=== PATIENT | female | born 1995 | race Caucasian/White ===

== ENCOUNTER 2021-06-26 19:57 | Inpatient (IN) | payer MEDICAID ==
[~2021-06-26] VITALS: Ht 172 cm; Wt 96.0 kg
[2021-06-26 20:15] VITALS: BP 125/83
[2021-06-26 20:20] VITALS: BP 125/83
[2021-06-26] MEDS ORDERED: MINERAL OIL 30 ML OIL TOP PRN (22:15)
[2021-06-26 22:35] LABS: BASOPHILS % (AUTO) 0 % (0-10); EOSINOPHILS % (AUTO) 0 % (0-10); HEMATOCRIT 37 % (35-52); HEMOGLOBIN 12.1 g/dL (11.5-16.0); LYMPHOCYTES # (AUTO) 1.8 10^3/uL (1.0-4.0); LYMPHOCYTES % (AUTO) 15 % (12-44); MEAN CORPUSCULAR HEMOGLOBIN 28 pg (25-34); MEAN CORPUSCULAR HGB CONC 33 g/dL (32-36); MEAN CORPUSCULAR VOLUME 83 fL (80-99); MEAN PLATELET VOLUME 11.3 fL (9.0-12.2); MONOCYTES % (AUTO) 8 % (0-12); NEUTROPHILS # (AUTO) 9.4 10^3/uL (1.8-7.8); NEUTROPHILS % (AUTO) 76 % (42-75); PLATELET COUNT 275 10^3/uL (130-400); WHITE BLOOD COUNT 12.3 10^3/uL (4.3-11.0)
[2021-06-26] MEDS: D5 LR IV SOLUTION 1,000 ML IV SCH (23:12)
[2021-06-27] VITALS (47 sets, daily range): BP systolic 103–148; BP diastolic 55–93
[2021-06-27 01:01] LABS: BILIRUBIN,URINE NEGATIVE (NEGATIVE); CLARITY,URINE SL CLOUDY; COLOR,URINE YELLOW; GLUCOSE, URINE (UA) NEGATIVE (NEGATIVE); KETONES,URINE NEGATIVE (NEGATIVE); LEUKOCYTE ESTERASE ,URINE TRACE (NEGATIVE); NITRITE,URINE NEGATIVE (NEGATIVE); PROTEIN,URINE NEGATIVE (NEGATIVE)
[2021-06-27 01:12] LABS: BACTERIA,URINE TRACE /HPF; WBC,URINE 0-2 /HPF
[2021-06-27] MEDS ORDERED: BUTORPHANOL INJ 2 MG/ML (STADOL) VIAL ONE ×2 (01:15→03:45)
[2021-06-27] MEDS ORDERED: BUTORPHANOL INJ 2 MG/ML (STADOL) VIAL IV ONE ×2 (01:15→03:45)
[2021-06-27] MEDS ORDERED: fentaNYL 2 mcg/ml BUPIVA 0.125 100 ML ONE (05:10)
[2021-06-27] MEDS ORDERED: LACTATED RINGERS 1,000 ML IV ONE (05:15)
[2021-06-27] MEDS ORDERED: CATHETER FLUSH 10 ML SYR IV SCH ×2 (06:00→14:00)
[2021-06-27] MEDS ORDERED: BUPIVACAINE 0.25% 30 ML (SENSORCAINE) VIAL ONE (06:02)
[2021-06-27] MEDS ORDERED: fentaNYL INJ 100 MCG/2 ML AMP ONE (06:02)
[2021-06-27] MEDS: D5 LR IV SOLUTION 1,000 ML IV SCH (06:29)
[2021-06-27] MEDS ORDERED: diphenhydrAMINE 50 MG/ML INJ (BENADRYL) IV PRN (06:45)
[2021-06-27] MEDS ORDERED: METOCLOPRAMIDE INJ 10 MG/2 ML (REGLAN) IV PRN (06:45)
[2021-06-27] MEDS ORDERED: ONDANSETRON 4 MG/2 ML (SDV) Z0FRAN IV PRN (06:45)
[2021-06-27] MEDS ORDERED: NALOXONE 0.4 MG/ML 1 ML (NARCAN) VIAL IV PRN ×2 (06:45)
[2021-06-27] MEDS ORDERED: LACTATED RINGERS 1,000 ML IV SCH (06:45)
[2021-06-27] MEDS ORDERED: EPIDURAL (fentaNYL 2 MCG/ML BUPIVA 0.125%)100 ML BAG EPI PRN (06:45)
[2021-06-27] MEDS ORDERED: FLU QUADRIvalent (3YOA+) 60 mcg/0.5 ml 2021-22(AFLURIA) IM ONE (07:15)
--- NOTE | 2021-06-27 08:46 | History & Physical-OB ---
OB - Chief Complaint & HPI Date/Time Date of Admission: Date of Admission: Jun 26, 2021 at 21:48 Date seen by a Provider: Jun 27, 2021 Time Seen by a Provider: 08:45 Chief Complaint/History OB-Reason for Admission/Chief: Onset of Labor Hx : 3 Hx Para: 0 Expected Date of Delivery: Jun 27, 2021 Gestational Age in Weeks: 39 Gestational Age in Days: 6 Other reason for admission: Contractions that started getting worse around 5 PM last night. They did not improve so they came to be evaluated. Denies any LOF or vaginal bleeding History of Labs O+, Ab neg Rub NON Immune HIV/RPR/HepB/C NR Normal 1 hr GTT GBS neg Allergies and Home Medications Allergies Coded Allergies: No Known Drug Allergies (Unverified , 06/26/21) Patient Home Medication List Home Medication List Reviewed: Yes OB - History Hx of Present Care: Yes Ultrasounds: Normal mid trimester US Obstetrical Complications: None Medical Complications: None Obstetrical History Hx : 3 Hx Para: 0 Number of Living Children: 0 Patient Past Medical History None Social History/Family History Alcohol Use: Denies Use Smoking Cessation: Never smoker Immunizations Influenza Vaccine Up-to-Date: No; Not Current Tetanus Booster (TDap): Less than 5yrs (04/17/21) Rubella: not immune RPR/VDRL: Negative GBS Status: Negative HBsAG: Negative OB - Admission Exam Physical Exam Vitals: Vital Signs 06/27/21 06/27/21 04:30 07:15 Temp 36.6 Pulse 109 Resp 16 B/P (MAP) 108/71 (83) Pulse Ox 98 O2 Delivery Room Air HEENT: NCAT Heart: Rhythm Normal Lungs: Clear Abdomen: Gravid Cervical Dilatation: 8cm Effacement: 100% Station: 0 Membranes: Intact Heart Rate: 140's Accelerations: Accelerations Present Decelerations: No Decelerations Short Term Variability: Present Correction Variability: Average (6-25) Contractions on Admission: < 5 Minutes Apart Intensity: Moderate Labs Laboratory Tests Test 06/26/21 20:10 06/26/21 22:25 Range/Units Urine Color YELLOW Urine Clarity SL CLOUDY Urine pH 7.0 5-9 Urine Specific [place] 1.020 1.016-1.022 Urine Protein NEGATIVE NEGATIVE Urine Glucose (UA) NEGATIVE NEGATIVE Urine Ketones NEGATIVE NEGATIVE Urine Nitrite NEGATIVE NEGATIVE Urine Bilirubin NEGATIVE NEGATIVE Urine Urobilinogen 0.2 < = 1.0 MG/DL Urine Leukocyte Esterase TRACE H NEGATIVE Urine RBC (Auto) TRACE-I H NEGATIVE Urine RBC 2-5 H /HPF Urine WBC 0-2 /HPF Urine Squamous Epithelial Cells 2-5 /HPF Urine Crystals NONE /LPF Urine Bacteria TRACE /HPF Urine Casts NONE /LPF Urine Mucus SMALL H /LPF Urine Culture Indicated NO White Blood Count 12.3 H 4.3-11.0 10^3/uL Red Blood Count 4.38 3.80-5.11 10^6/uL Hemoglobin 12.1 11.5-16.0 g/dL Hematocrit 37 35-52 % Mean Corpuscular Volume 83 80-99 fL Mean Corpuscular Hemoglobin 28 25-34 pg Mean Corpuscular Hemoglobin Concent 33 32-36 g/dL Red Cell Distribution Width 13.4 10.0-14.5 % Platelet Count 275 130-400 10^3/uL Mean Platelet Volume 11.3 9.0-12.2 fL Immature Granulocyte % (Auto) 1 % Neutrophils (%) (Auto) 76 H 42-75 % Lymphocytes (%) (Auto) 15 12-44 % Monocytes (%) (Auto) 8 0-12 % Eosinophils (%) (Auto) 0 0-10 % Basophils (%) (Auto) 0 0-10 % Neutrophils # (Auto) 9.4 H 1.8-7.8 10^3/uL Lymphocytes # (Auto) 1.8 1.0-4.0 10^3/uL Monocytes # (Auto) 1.0 0.0-1.0 10^3/uL Eosinophils # (Auto) 0.0 0.0-0.3 10^3/uL Basophils # (Auto) 0.0 0.0-0.1 10^3/uL Immature Granulocyte # (Auto) 0.1 0.0-0.1 10^3/uL OB - Assessment/Plan/Diagnosis Assessment Assessment: active labor Admission Dx Third Trimester 39 week gestation Admission Status: Inpatient Order (span 2 midnights) Reason for Inpatient Admission: Labor Plan Other Plan 26 yo @ 39.6 wga here in active labor Plan - GBS neg - AROM clear 0845 - epidural in place - CEFM - May augment with pitocin BAKARI ALONSO MD Jun 27, 2021 08:46
[2021-06-27] MEDS ORDERED: OXYTOCIN PRE-MIX DRIP 500 ML IV SCH ×2 (10:00→12:15)
[2021-06-27] MEDS ORDERED: OXYTOCIN PRE-MIX DRIP 500 ML IV ONE (10:04)
[2021-06-27] MEDS ORDERED: LIDOCAINE/EPI 2% 1:200,00 (XYLOCAINE) 10 ML VIAL ONE (10:05)
--- NOTE | 2021-06-27 12:00 | OB Labor & Delivery Record ---
Vag Delivery Note Vag Delivery Note Date of Delivery: 06/27/21 Preoperative Diagnosis: Sylwia Polanco is a (26 /Para 3 / 0,Gestational Age (wks)39.6 wga here in active labor Postoperative Diagnosis: Same Surgeon: BAKARI ALONSO MD Nurse Licensed Practical: Estiven Gomes MS4 Anesthesia: Epidural Delivery Type: @ 1111 Findings: Viable female , apgars 8/9, weight 7#12, 3515 grams Lacerations: 3rd degree with bilateral vaginal extension Intact placenta with 3 vessel cord. No nuchal cord, body cord or shoulder dystocia Estimated Blood Loss: 200 ml Complications: None Condition: Stable Description of Procedure: The patient is a 26 year old female who presented in active labor. She was admitted and informed consent was obtained. Her labor course was unremarkable. She progressed to complete dilatation and began to push. She was then set up for delivery. The infant's head was delivered atraumatically in the FLORA position. The shoulders and remainder of the infant's body were then delivered without difficulty. Upon delivery, the head was held below the level of the perineum and the mouth and nares were bulb suctioned. The cord was doubly clamped and cut by FOB after 2 min delay and the was placed on maternal abdomen and attended to by the pediatric staff. An intact placenta with 3-vessel cord delivered via [place] and there was found to be minimal bleeding.~ Vigorous fundal massage was performed and the fundus was found to be firm. IV oxytocin was given. Examination of the vagina and perineum revealed a 3rd degree perineal laceration with bilateral vaginal extension repaired in the usual fashion with 3-0 vicryl suture. Following the repair, sponge, instrument and needle counts were correct. Mom and baby were both in stable condition in the labor suite. Vitals - Labs Vital Signs - I&O Vital Signs Date Time Temp Pulse Resp B/P (MAP) Pulse Ox O2 Delivery O2 Flow Rate FiO2 06/27/21 10:30 86 18 125/79 (94) 99 06/27/21 10:15 86 15 120/80 (93) 97 06/27/21 10:00 104 16 115/77 (90) 97 06/27/21 09:45 105 18 116/76 (89) 96 06/27/21 09:30 103 15 118/69 (85) 97 06/27/21 09:15 109 16 123/70 (87) 98 06/27/21 09:00 110 16 132/77 (95) 98 06/27/21 08:45 102 14 116/74 (88) 93 Room Air 06/27/21 08:30 126 15 116/75 (89) 100 Room Air 06/27/21 08:15 116 18 120/81 (94) 99 Room Air 06/27/21 08:00 88 18 117/81 (93) 99 Room Air 06/27/21 07:45 85 18 125/75 (92) 97 06/27/21 07:30 100 15 111/57 (75) 98 Room Air 06/27/21 07:15 109 16 108/71 (83) 98 Room Air 06/27/21 07:00 109 18 117/75 (89) 06/27/21 06:45 107 18 122/82 (95) 98 06/27/21 06:37 107 18 122/82 (95) 96 Room Air 06/27/21 06:32 116 18 116/77 (90) 96 Room Air 06/27/21 06:28 91 18 119/80 (93) 98 Room Air 06/27/21 06:25 100 18 126/79 (95) 98 Room Air 06/27/21 06:22 107 18 119/80 (93) 98 Room Air 06/27/21 06:17 91 18 127/86 (100) 98 Room Air 06/27/21 06:12 112 18 131/93 (106) 98 Room Air 06/27/21 06:07 113 18 135/82 (99) 98 Room Air 06/27/21 05:30 115 18 120/83 (95) 96 Room Air 06/27/21 05:00 117 18 111/80 (90) 99 Room Air 06/27/21 04:30 36.6 108 18 111/63 (79) 06/27/21 04:00 101 114/79 (91) 06/27/21 03:30 93 18 148/89 (108) 97 Room Air 06/27/21 03:00 109 18 119/78 (92) 98 Room Air 06/27/21 02:30 88 18 118/77 (91) 96 Room Air 06/27/21 02:00 98 17 120/66 (84) 95 Room Air 06/27/21 01:30 82 18 117/77 (90) 95 Room Air 06/27/21 01:00 93 18 128/75 (92) 06/27/21 00:22 96 18 103/63 (76) 06/26/21 20:20 36.6 108 18 125/83 (97) 98 Room Air 06/26/21 20:15 36.6 108 18 98 Room Air I & O 06/27/21 06:59 Intake Total 2000 ml Balance 2000 ml Labs Laboratory Tests 06/26/21 20:10: Urine Color YELLOW, Urine Clarity SL CLOUDY, Urine pH 7.0, Urine Specific [place] 1.020, Urine Protein NEGATIVE, Urine Glucose (UA) NEGATIVE, Urine Ketones NEGATIVE, Urine Nitrite NEGATIVE, Urine Bilirubin NEGATIVE, Urine Urobilinogen 0.2, Urine Leukocyte Esterase TRACEH, Urine RBC (Auto) TRACE-IH, Urine RBC 2-5H, Urine WBC 0-2, Urine Squamous Epithelial Cells 2-5, Urine Crystals NONE, Urine Bacteria TRACE, Urine Casts NONE, Urine Mucus SMALLH, Urine Culture Indicated NO 06/26/21 22:25: White Blood Count 12.3H, Red Blood Count 4.38, Hemoglobin 12.1, Hematocrit 37, Mean Corpuscular Volume 83, Mean Corpuscular Hemoglobin 28, Mean Corpuscular Hemoglobin Concent 33, Red Cell Distribution Width 13.4, Platelet Count 275, Mean Platelet Volume 11.3, Immature Granulocyte % (Auto) 1, Neutrophils (%) (Auto) 76H, Lymphocytes (%) (Auto) 15, Monocytes (%) (Auto) 8, Eosinophils (%) (Auto) 0, Basophils (%) (Auto) 0, Neutrophils # (Auto) 9.4H, Lymphocytes # (Auto) 1.8, Monocytes # (Auto) 1.0, Eosinophils # (Auto) 0.0, Basophils # (Auto) 0.0, Immature Granulocyte # (Auto) 0.1 BAKARI ALONSO MD Jun 27, 2021 12:00
[2021-06-27] MEDS ORDERED: MEASLES,MUMPS,RUBELLA 1 EA INJ SQ ONE (12:15)
[2021-06-27] MEDS ORDERED: WITCH HAZEL(TUCKS) 40 EA JAR TOP PRN (12:15)
[2021-06-27] MEDS ORDERED: BENZOCAINE/MENTHOL (DERMOPLAST) 56 ML CAN TP PRN (12:15)
[2021-06-27] MEDS ORDERED: MINERAL OIL CONCENTRATE 99.9% 15 ML UDC TOP PRN (13:00)
[2021-06-27] MEDS ORDERED: ACETAMINOPHEN 500 MG TAB (TYLENOL) ONE (14:03)
[2021-06-27] MEDS ORDERED: IBUPROFEN 600 MG (MOTRIN) TAB PO ONE (14:04)
[2021-06-27] MEDS: IBUPROFEN 600 MG (MOTRIN) TAB PO SCH ×2 (14:07→23:52)
[2021-06-27] MEDS: ACETAMINOPHEN 500 MG TAB (TYLENOL) PO SCH ×2 (14:08→23:53)
[2021-06-27] MEDS: DOCUSATE SODIUM 100 MG (COLACE) CAP PO SCH (20:32)
[2021-06-28 04:01] VITALS: BP 113/59
[2021-06-28] MEDS: IBUPROFEN 600 MG (MOTRIN) TAB PO SCH (05:43)
[2021-06-28] MEDS: ACETAMINOPHEN 500 MG TAB (TYLENOL) PO SCH ×2 (06:07→09:15)
[2021-06-28 06:37] LABS: BASOPHILS % (AUTO) 0 % (0-10); EOSINOPHILS # (AUTO) 0.1 10^3/uL (0.0-0.3); EOSINOPHILS % (AUTO) 1 % (0-10); HEMATOCRIT 31 % (35-52); HEMOGLOBIN 9.9 g/dL (11.5-16.0); LYMPHOCYTES # (AUTO) 2.4 10^3/uL (1.0-4.0); LYMPHOCYTES % (AUTO) 17 % (12-44); MEAN CORPUSCULAR HEMOGLOBIN 27 pg (25-34); MEAN CORPUSCULAR HGB CONC 33 g/dL (32-36); MEAN CORPUSCULAR VOLUME 84 fL (80-99); MEAN PLATELET VOLUME 12.3 fL (9.0-12.2); MONOCYTES # (AUTO) 1.1 10^3/uL (0.0-1.0); MONOCYTES % (AUTO) 7 % (0-12); NEUTROPHILS # (AUTO) 10.8 10^3/uL (1.8-7.8); NEUTROPHILS % (AUTO) 74 % (42-75); PLATELET COUNT 232 10^3/uL (130-400); WHITE BLOOD COUNT 14.5 10^3/uL (4.3-11.0)
--- NOTE | 2021-06-28 07:38 | Discharge Summary ---
Diagnosis/Chief Complaint Date of Admission Jun 26, 2021 at 21:48 Date of Discharge June 28, 2021 Admission Diagnosis Admission Diagnosis 1. Intrauterine at 39 weeks gestation Discharge Diagnosis 1. Intrauterine at 39 weeks gestation Chief Complaint/HPI Chief Complaint/HPI 6-year-old 3 now term 1 L1who presents to labor and delivery during the evening of June 26, 2021 in early labor. She continued to contract during her morning of June 27 and ultimately was admitted for labor and delivery. Her GBS status was noted to be negative. Discharge Summary-OBS Procedures 1. Epidural per anesthesia 2. Spontaneous vaginal delivery 3. Third degree laceration with bilateral vaginal extension Discharge Physical Examination Allergies: Coded Allergies: No Known Drug Allergies (Unverified , 06/26/21) Vitals & I&Os Intake and Output 06/28/21 00:00 Intake Total 500 ml Balance 500 ml Vital Sign - Last 12Hours Date Time Temp Pulse Resp B/P (MAP) Pulse Ox O2 Delivery O2 Flow Rate FiO2 06/28/21 04:01 36.8 85 18 113/59 (77) Room Air 06/27/21 23:46 97 General Appearance: No Acute Distress HEENT: Atraumatic Respiratory: Clear to Auscultation Cardiovascular: Regular Rate Abdominal: Normal Bowel Sounds, Soft (with uterus firm) Hospital Course Was the Problem List Reviewed?: Yes following admission patient ultimately underwent epidural in the morning of June 27. She had spontaneous vaginal delivery at 1111. She was noted to have term viable female with Apgars of 8 at 1 minute and 9 at 5 minutes. Infant weight of 7 lbs. 12 oz. She also was noted to have a third-degree perineal laceration with bilateral vaginal extensions. Following delivery she underwent routine care orders. She had no complications during the remainder of hospital stay. She had voided urine but no bowel movement during the course of her stay. Hemoglobin in the morning of June 28 was 9.9 compared to admission of 12.1. She was ready for discharge during the afternoon of June 28. All questions were answered and she will follow up with Dr. Rendon in 6 weeks. Labs Laboratory Tests 06/28/21 05:51: White Blood Count 14.5H, Red Blood Count 3.64L, Hemoglobin 9.9L, Hematocrit 31L, Mean Corpuscular Volume 84, Mean Corpuscular Hemoglobin 27, Mean Corpuscular Hemoglobin Concent 33, Red Cell Distribution Width 13.5, Platelet Count 232, Mean Platelet Volume 12.3H, Immature Granulocyte % (Auto) 1, Neutrophils (%) (Auto) 74, Lymphocytes (%) (Auto) 17, Monocytes (%) (Auto) 7, Eosinophils (%) (Auto) 1, Basophils (%) (Auto) 0, Neutrophils # (Auto) 10.8H, Lymphocytes # (Auto) 2.4, Monocytes # (Auto) 1.1H, Eosinophils # (Auto) 0.1, Basophils # (Auto) 0.0, Immature Granulocyte # (Auto) 0.1 Discharge Instructions to patient/family Please see electronic discharge instructions given to patient. Discharge Medications Reviewed and agree with Discharge Medication list on patient's Discharge Instruction sheet RAYMUNDO UNDERWOOD MD Jun 28, 2021 07:38
[2021-06-28] MEDS ORDERED: IBUP-844 PO (07:43)
[2021-06-28] MEDS ORDERED: DOCU100C37 PO (07:43)
[2021-06-28] MEDS ORDERED: FERR325T24 PO (07:43)
--- NOTE | 2021-06-28 07:44 | Discharge Inst-Women's Service ---
Discharge Inst-Women's Serv Depart Medication/Instructions New, Converted or Re-Newed RX: Transmitted to Pharmacy ([facility]) Problems Reviewed?: Yes Consults/Follow Up Additional Follow Up: Yes (Dr Rendon in 6 weeks) Activity Activity: Activity as Tolerated Driving Instructions: No Driving for 1 Week Nothing Inside Vagina: No [place] (for 6 weeks) Diet Discharge Diet: Regular Diet Return to The Hospital For: as below Symptoms to Report to : Swelling Increased, Bleeding Excessive, Fever Over 101 Degrees F, Vaginal Discharge Foul For Any Problems or Questions: Contact Your Physician RAYMUNDO UNDERWOOD MD Jun 28, 2021 07:44
[2021-06-28] MEDS ORDERED: FERROUS SULF 325 MG (IRON) TAB PO SCH (09:00)
[2021-06-28 09:15] VITALS: BP 127/78
[2021-06-28] MEDS: DOCUSATE SODIUM 100 MG (COLACE) CAP PO SCH (09:15)
--- NOTE | 2021-06-28 13:30 | Anesthesia-Regional Post-Op ---
Regional Patient Condition Mental Status: Alert, Oriented x3 Circulation: Same as Pre-Op Headache: Absent Sensation: Full Recovery Motor Block: Absent Post Op Complications Complications None Follow Up Care/Instructions Patient Instructions None needed. Anesthesia/Patient Condition Patient is doing well, no complaints, stable vital signs, no apparent adverse anesthesia problems. No complications reported per nursing. GORDON LAURENT CRNA Jun 28, 2021 13:30
== END 2021-06-28 14:05 | disposition home or self-care (01) | DRG 768 ==
LOC: LDRP 19:57 → WSo 19:57 → LDRP 21:48 → WSo 21:48 → LDRP 06-27 12:25
PROVIDERS: ADMIT Family Medicine; ATTEND Family Medicine
PROC: 10E0XZZ Delivery of Products of Conception, External Approach (ICD-10-PCS; principal; 2021-06-27)
PROC: 0DQR0ZZ Repair Anal Sphincter, Open Approach (ICD-10-PCS; 2021-06-27)
PROC: 10907ZC Drainage of Amniotic Fluid, Therapeutic from Products of Conception, Via Natural or Artificial Opening (ICD-10-PCS; 2021-06-27)
DX: O70.20 Third degree perineal laceration during delivery, unspecified (principal); Z37.0 Single live birth; Z3A.39 39 weeks gestation of pregnancy
CPT/HCPCS: 36415; 81000; 85025; 86850; 86900; 86901; 99212